=== PATIENT | male | born 1990 | race Two or more races ===

== ENCOUNTER 2023-06-14 16:51 | Outpatient (REF) | payer BC, SELFPAY ==
--- NOTE | ~2023-06-14 | XR_ITS ---
EXAMINATION: XR RIBS, RIGHT CLINICAL INFORMATION: Right rib injury, lower right rib pain. COMPARISON: None available. TECHNIQUE: 4 views of the right ribs. FINDINGS: The heart size is normal. There is no gross pneumothorax. No pleural effusion. No gross displaced right rib fracture. XR/XR ribs RT min 3V w CXR1V IMPRESSION: No displaced lower right rib fracture.
== END 2023-06-14 16:52 | disposition home or self-care (01) ==
LOC: HO.XRAY 16:51
PROVIDERS: PCP Internal Medicine; Visit Provider Internal Medicine
DX: R07.81 Pleurodynia (principal)
CPT/HCPCS: 71101